=== PATIENT | male | born 1980 | race Caucasian/White ===

== ENCOUNTER 2017-01-10 11:40 | Emergency (ER) | payer OTHER ==
[~2017-01-10] VITALS: Ht 167.6 cm; Wt 85.7 kg
[~2017-01-10 11:40] MED LIST: AMOXICILLIN500 MG PO; GOOD SENSE IBU200 MG PO; HYDROCODONE/ACE1 TA1 PO; MEDROL DOSEPAK1 PAC PO; MEDROL4 M2 PO; NAPROSYN500 M1 PO; NORCO 325 MG-51 TAB PO; TRAMADOL HCL50 M1 PO; TRAMADOL50 MG PO; ULTRAM(MONOGRAP50 MG PO
[2017-01-10 13:16] LABS: ABSOLUTE BASOPHIL COUNT 0 /CUMM (0.0-0.2); ABSOLUTE EOSINOPHIL COUNT 0.1 /CUMM (0.0-0.7); ABSOLUTE GRANULOCYTE CT 4.8 /CUMM (1.4-6.5); ABSOLUTE LYMPH COUNT 1.4 /CUMM (1.2-3.4); ABSOLUTE MONOCYTE COUNT 0.7 /CUMM (0.10-0.60); BASOPHIL % 0.3 % (0.0-2.0); EOSINOPHIL % 1.3 % (0-5); GRANULOCYTE % 68.4 % (42.2-75.2); HEMATOCRIT 39.2 % (42-52); MEAN CORPUSCULAR HGB 32.2 PG (27.0-31.0); MEAN CORPUSCULAR HGB CONC 33.8 G/DL (33.0-37.0); MEAN CORPUSCULAR VOLUME 95.3 FL (80.0-94.0); MEAN PLATELET VOLUME 7.3 FL (7.4-10.4); PLATELET COUNT 246 /CUMM (130-400); RBC DISTRIBUTION WIDTH 13.2 % (11.5-14.5); RED BLOOD CELL CT 4.12 /CUMM (4.70-6.10)
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
--- NOTE | 2017-01-10 14:54 | CT SCAN REPORT ---
EXAMINATION: CT CHEST WITH CONTRAST CT ABDOMEN AND PELVIS WITH CONTRAST CT THORACIC SPINE WITHOUT CONTRAST CLINICAL INFORMATION: Coronal fell on patient. Rule out organ injury, fracture. COMPARISON: 06/16/2015. TECHNIQUE: Multidetector volumetric imaging was performed from the thoracic inlet through the pubic symphysis following administration of intravenous contrast material. Additional dedicated images were obtained through the thoracic spine. A total of 94 mL Optiray-320 was administered intravenously. Sagittal and coronal images were reformatted. DOSE: 703.6 and 718 mGy-cm FINDINGS: -CHEST- LUNG: Central airways are clear. A small 0.3 cm nodular focus along the right lateral pleural surface adjacent to the right major fissure likely corresponds to a intrapulmonary lymph node and is of no clinical significance. A few smaller foci of pleural thickening are identified in this region. No suspicious pulmonary nodules are identified. The lungs are otherwise clear without consolidation or contusion. MEDIASTINUM: The mediastinum in normal. The central vascular structures are unremarkable. No hilar or mediastinal lymphadenopathy. PERICARDIUM/PLEURA: No significant effusion. No pleural mass or thickening. CHEST WALL/AXILLA: Unremarkable. -ABDOMEN/PELVIS- LIVER, GALLBLADDER, BILIARY TREE: The liver is normal in size, shape, and attenuation. No focal hepatic lesion or biliary ductal dilatation is present. The gallbladder is unremarkable with no evidence of radiopaque gallstones, gallbladder wall thickening, or obvious pericholecystic inflammatory changes. PANCREAS: Unremarkable. SPLEEN: Unremarkable. ADRENAL GLANDS: Unremarkable. KIDNEYS AND URETERS: The kidneys are normal in size, shape, and attenuation. Multiple bilateral renal calculi are present, measuring up to 4 mm in diameter. No hydronephrosis or hydroureter. No perinephric stranding. BLADDER: Unremarkable. GASTROINTESTINAL TRACT: Stomach, small bowel, and colon are normal in caliber. Appendix is normal. No bowel wall thickening or surrounding inflammatory changes are identified. No intraperitoneal free fluid or free air. ABDOMINAL WALL: No significant hernia is appreciated. VASCULATURE: There is a circumaortic left renal vein. Aorta is normal in caliber. No aneurysmal dilatation. LYMPH NODES: No lymphadenopathy. . PELVIC VISCERA: Unremarkable. OSSEUS STRUCTURES: Bilateral pars defects are present at L5 with grade 2 anterolisthesis of L5 on S1 by 1.1 cm. There is severe degenerative disc disease at L5-S1. Mild facet arthropathy is present in this region. There is mild multilevel degenerative disc disease in the thoracolumbar spine. No acute fractures are identified. Mild degenerative arthritis is present in the SI joints and hips. -THORACIC SPINE- No acute fracture or malalignment. Vertebral body heights are normal. At the T11 and T12 superior endplates, there are limbus vertebra anteriorly resulting in a fragmented appearance to the anterior margin of the superior endplate which should not be confused for a fracture. There is a developmental abnormality at the anterior margin of the T3-T4 level with cephalad protuberance of the anterior margin of the T4 superior endplate. This is of doubtful clinical significance. There is mild multilevel degenerative disc disease in the thoracic spine which is characterized primarily by small endplate osteophytes. There is minimal loss of intervertebral disc height in the thoracic spine. Degenerative disc disease in the cervical spine at C5-C6 and C6-C7 is only partially included on this study. Facet joints are well-preserved. No significant facet arthropathy. The central canal and cervical spine appears well-preserved without appreciable central canal stenoses. No gross evidence of epidural hematoma. No evidence of osseous encroachment on the neural foramina. As noted on the above CT of the abdomen and pelvis, renal calculi are present bilaterally. IMPRESSION: 1. No acute traumatic injuries to the bones and parenchymal organs of the chest, abdomen, and pelvis are identified. 2. Bilateral nonobstructing nephrolithiasis 3. Mild multilevel degenerative disc disease in the thoracic spine with limbus vertebral bodies at the superior endplates of T11 and T12. No fractures. 4. Bilateral chronic pars defects at L5 with grade 2 anterolisthesis of L5 on S1 and severe degenerative disc disease at L5-S1.
[2017-01-10 15:57] VITALS: BP 137/85
== END 2017-01-10 16:00 | disposition short-term general hospital (02) ==
LOC: ERH 11:40
PROVIDERS: Physician Assistant
DX: T14.8 Other injury of unspecified body region (principal); S20.411A Abrasion of right back wall of thorax, initial encounter; R77.8 Other specified abnormalities of plasma proteins; W23.0XXA Caught, crushed, jammed, or pinched between moving objects, initial encounter; Y93.89 Activity, other specified; Y92.9 Unspecified place or not applicable
CPT/HCPCS: 74177; 96372